=== PATIENT | male | born 1945 ===

== ENCOUNTER 2023-11-21 15:40 | Outpatient (CLI) | payer MEDICARE | END 2023-11-21 23:59 | disposition critical access hospital (66) | LOC: EMS 15:40 | DX: R09.89 Other specified symptoms and signs involving the circulatory and respiratory systems (principal); R53.83 Other fatigue | CPT/HCPCS: A0425; A0429 ==

== ENCOUNTER 2023-11-21 16:03 | Emergency (ER) | payer MEDICARE, OTHER ==
--- NOTE | 2023-11-21 16:13 | ED Physician Documentation ---
History of Present Illness - Stated complaint Stated Complaint: DIFFICULTY BREATHING - History obtained from History obtained from: Patient, EMS - Additonal information Additional information: 78-year-old with history of dementia presents from a memory care facility. History is very limited from the patient due to his dementia but it sounds like they were concerned that he choked this morning and perhaps has an obstruction of his airway or esophagus. PD PAST MEDICAL HISTORY - Present Medications Home Medications: Ambulatory Orders Medication Instructions Recorded Confirmed Acetaminophen 325 mg PO Q6HR 11/21/23 Losartan [Cozaar] 25 mg PO DAILY 11/21/23 11/21/23 - Allergies Allergies/Adverse Reactions: Allergies Allergy/AdvReac Type Severity Reaction Status Date / Time Penicillins AdvReac Unknown Verified 11/21/23 18:35 Sulfa (Sulfonamide AdvReac Unknown Verified 11/21/23 18:35 Antibiotics) PD ED PE NORMAL - Vitals Vital signs reviewed: Yes - General General: Other (He is awake alert and talking to me but unable to participate in history due to dementia/confusion.) - HEENT HEENT: PERRL, EOMI, Pharynx benign - Cardiac Cardiac: RRR, No murmur - Respiratory Respiratory: No respiratory distress, Clear bilaterally - Abdomen Abdomen: Non tender - Neuro Eye Opening: Spontaneous Motor: Obeys Commands Verbal: Confused GCS Score: 14 Results - Vitals Vitals: Vital Signs - 24 hr 11/21/23 11/21/23 11/21/23 16:08 16:15 16:24 Temperature 36.3 C L Heart Rate 72 74 74 Respiratory 19 17 17 Rate Blood Pressure 140/126 H O2 Saturation 97 96 97 11/21/23 11/21/23 16:42 18:30 Temperature 37.7 C Heart Rate 79 92 Respiratory 18 16 Rate Blood Pressure 154/75 H O2 Saturation 97 93 Oxygen O2 Source Room air - Labs Labs: Laboratory Tests 11/21/23 11/21/23 17:07 17:07 WBC 4.3 L RBC 4.18 L Hgb 11.7 L Hct 37.8 L MCV 90.4 MCH 28.0 MCHC 31.0 L RDW 13.3 Plt Count 111 L MPV 9.9 Neut # (Auto) 3.0 Lymph # (Auto) 0.8 L [place] # (Auto) 0.4 Eos # (Auto) 0.0 Baso # (Auto) 0.0 Absolute Nucleated RBC 0.00 Nucleated RBC % 0.0 Sodium 137 Potassium 4.1 Chloride 103 Carbon Dioxide 27 Anion Gap 7.0 BUN 31 H Creatinine 1.5 H Estimated GFR (MDRD) 45 L Glucose 98 Calcium 9.5 Magnesium 1.8 Total Bilirubin 0.6 AST 20 ALT 17 Alkaline Phosphatase 74 Total Protein 6.4 Albumin 3.8 Globulin 2.6 Albumin/Globulin Ratio 1.5 - Rads (name of study) Chest x-ray demonstrating cardiomegaly without infiltrate. Relevant Findings:: Final report received, EMP independent interpretation of test CT Head-NAD Relevant Findings:: Final report received, EMP independent interpretation of test PD Medical Decision Making - ED course Complexity details: reviewed results (CBC- mild anemia, unclear acuity, CMP, low renal function, unclear acuity) ED course: This is an 78-year-old gentleman with fairly severe dementia presents with concern for choking episode today. Minimal history is available from the patient but he appears well and was able to swallow liquids without issue at the bedside. This rules out esophageal obstruction of course. And chest x-ray looks grossly clear. I did call his sister, his POA who is on the [facility] and had a lengthy discussion with her about goals of care. She had filled out his POLST form with comfort measures only, and admits she would not want any "heroic" measures but would like basic things checked. Her understanding from the nurse at the [facility] care facility was that he has been looking ill for 2 days with an ashen color, decreased bowel movements and oral intake and trouble swallowing. We discussed goals of care including what if any workup should be done. She initially wanted me to check "everything." I discussed with her that usually the purpose of medical testing is to delineate a diagnosis and treatment plan. I gave her several examples of what diagnoses and treatments we could workup, for example I asked her if he was having a heart attack, would she want us to transfer him to a cardiology facility for angiography and the answer was "no." Then discussed with her if he was having worsening of chronic kidney disease and kidney failure, which she want him to have dialysis and again the answer was in the negative. That said she still wanted "the basics" checked and we performed a CBC which was notable for some anemia of unclear chronicity and lymphopenia which is nonspecific. A CMP showing moderate depressed renal function, again of unclear acuity. That said there is no emergency medical condition identified on this testing and I updated the sister by phone who was appreciative. Departure - Departure Disposition: 01 Home, Self Care Clinical Impression: Renal insufficiency, Choking episode, Dementia Anemia Qualifiers: Anemia type: unspecified type Qualified Code(s): D64.9 - Anemia, unspecified Condition: Good Record reviewed to determine appropriate education?: Yes Comments: His chest x-ray is clear. He was able to tolerate liquids so no esophageal obstruction. His sister was involved and we did a CAT scan of his head, CBC and CMP with relevant findings of a normal head CT, mild anemia on CBC and depressed renal function of unclear acuity on CMP. Forms: PCP List Discharge Date/Time: 11/21/23 18:51
[2023-11-21 17:13] LABS: BASOPHILS % (AUTO) 0.2 %; EOSINOPHILS % (AUTO) 0.7 %; HCT - HEMATOCRIT 37.8 % (42.0-52.0); HGB - HEMOGLOBIN 11.7 g/dL (14.0-18.0); LYMPHOCYTES # (AUTO) 0.8 10^3/uL (1.5-3.5); LYMPHOCYTES % (AUTO) 19.1 %; MEAN CORPUSCULAR VOLUME 90.4 fL (80.0-94.0); MEAN PLATELET VOLUME 9.9 fL (7.4-11.4); MONOCYTES # (AUTO) 0.4 10^3/uL (0.0-1.0); MONOCYTES % (AUTO) 10.1 %; NEUTROPHILS % (AUTO) 69.7 %; PLT - PLATELET COUNT 111 10^3/uL (130-450); RED BLOOD COUNT 4.18 10^6/uL (4.70-6.10); RED CELL DISTRIBUTION WIDTH 13.3 % (12.0-15.0); WHITE BLOOD COUNT 4.3 x10^3/uL (4.8-10.8)
--- NOTE | 2023-11-21 17:16 | XRAY Report ---
PROCEDURE: Chest 1V INDICATIONS: possible aspiration TECHNIQUE: One view of the chest was acquired. COMPARISON: None. FINDINGS: Surgical changes and devices: None. Lungs and pleura: No pleural effusions or pneumothorax. Lungs are clear. Mediastinum: Mediastinal contours appear normal. Cardiomegaly. Bones and chest wall: No suspicious bony lesions. Overlying soft tissues appear unremarkable. IMPRESSION: Cardiomegaly. No focal infiltrates. Reviewed by: Cedric Park MD on 11/21/2023 5:15 PM PDT Approved by: Cedric Park MD on 11/21/2023 5:15 PM PDT Station ID: [id number]
[2023-11-21 17:29] LABS: MAGNESIUM 1.8 mg/dL (1.7-2.3)
[2023-11-21 17:35] LABS: ALBUMIN 3.8 g/dL (3.2-5.5); ALBUMIN/GLOBULIN RATIO 1.5 (1.0-2.2); BILIRUBIN,TOTAL 0.6 mg/dL (0.2-1.0); CALCIUM 9.5 mg/dL (8.5-10.3); CREATININE 1.5 mg/dL (0.6-1.3); POTASSIUM 4.1 mmol/L (3.5-4.5); TOTAL PROTEIN 6.4 g/dL (6.4-8.9)
--- NOTE | 2023-11-21 17:38 | CT Report ---
PROCEDURE: Head WO INDICATIONS: dysphagia TECHNIQUE: Noncontrast 4.5 mm thick angled axial sections acquired from the foramen magnum to the vertex. For r adiation dose reduction, the following was used: automated exposure control, adjustment of mA and/or kV according to patient size. COMPARISON: None. FINDINGS: Image quality: Suboptimal due to motion artifact. CSF spaces: Basal cisterns are patent. No extra-axial fluid collections. Ventricles are normal in size and shape. Brain: No midline shift. No intracranial masses or hemorrhage. [place]-white matter interface is norm al. Skull and face: Calvarium and visualized facial bones are intact, without suspicious lesions. Sinuses: Trace posterior mucosal thickening of the left maxillary sinus. IMPRESSION: Severely suboptimal evaluation due to motion artifact. No acute intracranial pathology. Reviewed by: Bhavik Warner MD on 11/21/2023 5:37 PM PDT Approved by: Bhavik Warner MD on 11/21/2023 5:37 PM PDT Station ID: [id number]
[2023-11-21 18:43] VITALS: BP 154/75; O2SAT 93
== END 2023-11-21 18:51 | disposition home or self-care (01) ==
LOC: ED 16:03
DX: R09.89 Other specified symptoms and signs involving the circulatory and respiratory systems (principal); F03.90 Unspecified dementia, unspecified severity, without behavioral disturbance, psychotic disturbance, mood disturbance, and anxiety; N28.9 Disorder of kidney and ureter, unspecified; D64.9 Anemia, unspecified; Z79.899 Other long term (current) drug therapy
CPT/HCPCS: 36415; 80053; 83735; 85025; 99283; 99284

== ENCOUNTER 2023-12-11 04:06 | Outpatient (CLI) | payer MEDICARE | END 2023-12-11 23:59 | disposition critical access hospital (66) | LOC: EMS 04:06 | DX: S01.01XA Laceration without foreign body of scalp, initial encounter (principal); W18.30XA Fall on same level, unspecified, initial encounter; Y92.099 Unspecified place in other non-institutional residence as the place of occurrence of the external cause; F03.90 Unspecified dementia, unspecified severity, without behavioral disturbance, psychotic disturbance, mood disturbance, and anxiety | CPT/HCPCS: A0425; A0429 ==

== ENCOUNTER 2023-12-11 04:10 | Emergency (ER) | payer MEDICARE ==
[2023-12-11] MEDS: TETANUS/DIPHTHERIA/PERTUSSIS 0.5 ML SYRINGE IM ONE (04:53)
--- NOTE | 2023-12-11 05:26 | ED Physician Documentation ---
PD HPI HEAD INJURY - Stated complaint Stated Complaint: GLF - Chief complaint Chief Complaint: Trauma Hd/Nk - History obtained from History obtained from: EMS - Additional information Additional information: Patient is an 78-year-old male [facility] with [facility] presenting for evaluation of an unwitnessed fall. Staff heard him fall and saw that he had a head injury with a laceration. Patient is not able to provide any meaningful history.He is not on any blood thinners. Review of Systems Unable to obtain: Dementia PD PAST MEDICAL HISTORY - Past Medical History Cardiovascular: Hypertension Respiratory: None Neuro: Alzhiemer's, Dementia Endocrine/Autoimmune: None GI: GERD : None HEENT: None Psych: None Musculoskeletal: None Derm: None - Present Medications Home Medications: Ambulatory Orders Medication Instructions Recorded Confirmed Losartan [Cozaar] 25 mg PO DAILY 11/21/23 12/11/23 Acetaminophen [Aphen] 325 mg PO PRN PRN 12/11/23 12/11/23 Albuterol Sulfate [Proair 90 mcg IH PRN PRN 12/11/23 12/11/23 Digihaler] Cetirizine HCl [All Day Allergy 10 mg PO DAILY 12/11/23 12/11/23 Relief] Loperamide [Imodium] 2 mg PO ONCE 12/11/23 12/11/23 Magnesium Hydroxide [Milk of 400 mg PO PRN PRN 12/11/23 12/11/23 Magnesia] predniSONE [Deltasone] 20 mg PO DAILY 12/11/23 12/11/23 - Allergies Allergies/Adverse Reactions: Allergies Allergy/AdvReac Type Severity Reaction Status Date / Time Penicillins AdvReac Unknown Verified 12/11/23 04:20 Sulfa (Sulfonamide AdvReac Unknown Verified 12/11/23 04:20 Antibiotics) - Social History Does the pt smoke?: No Smoking Status: Never smoker Does the pt drink ETOH?: No Does the pt have substance abuse?: No - Immunizations Immunizations are current?: Yes - POLST Patient has POLST: No PD ED PE NORMAL - General General: No acute distress, Well developed/nourished. No: Alert and oriented X 3 (Alert and oriented to person and place) - HEENT HEENT: Other (Posterior scalp hematoma and laceration) - Neck Neck: Supple, no meningeal sign, No bony TTP - Cardiac Cardiac: RRR - Respiratory Respiratory: No respiratory distress, Clear bilaterally - Abdomen Abdomen: Soft, Non tender, Non distended - Derm Derm: Warm and dry - Extremities Extremities: No deformity, Normal ROM s pain - Neuro Neuro: No motor deficit, Normal speech. No: Alert and oriented X 3 (Alert and oriented to person and place) Eye Opening: Spontaneous Motor: Obeys Commands Verbal: Confused GCS Score: 14 Results - Vitals Vitals: Vital Signs - 24 hr 12/11/23 04:14 Temperature 36.4 C L Heart Rate 64 Respiratory 14 Rate Blood Pressure 176/82 H O2 Saturation 100 Oxygen O2 Source Room air - Labs Labs: Laboratory Tests 12/11/23 12/11/23 06:04 06:04 WBC 8.3 RBC 3.86 L Hgb 11.0 L Hct 34.9 L MCV 90.4 MCH 28.5 MCHC 31.5 L RDW 13.3 Plt Count 201 MPV 9.3 Neut # (Auto) 6.6 Lymph # (Auto) 0.9 L Jay # (Auto) 0.6 Eos # (Auto) 0.1 Baso # (Auto) 0.0 Absolute Nucleated RBC 0.00 Nucleated RBC % 0.0 Sodium 139 Potassium 4.3 Chloride 105 Carbon Dioxide 28 Anion Gap 6.0 BUN 22 H Creatinine 1.4 H Estimated GFR (MDRD) 49 L Glucose 88 Calcium 10.1 Total Bilirubin 0.5 AST 11 ALT 11 Alkaline Phosphatase 70 Total Protein 6.8 Albumin 3.6 Globulin 3.2 Albumin/Globulin Ratio 1.1 Procedures - Laceration (location) Scalp - posterior Length in cm: 2.5 Wound type: Linear Wound preparation: Hibiclens, Irrigated copiously NS Skin layer closure: [place] (3) Other: Patient tolerated well, No complications, Neurovascular intact, Tetanus booster given PD Medical Decision Making - ED course Complexity details: reviewed results, d/w patient ED course: Patient is an 78-year-old male from a memory care facility with an unwitnessed fall and head injury. Not on blood thinners. Appears to be at his neurobaseline. CT head and cervical spine were obtained and reviewed. Patient has an area of subdural hemorrhage as well as subarachnoid hemorrhage from trauma. No findings of C-spine fractures. Discussed with neurosurgery at [facility] and will plan for repeat CT in 4 hours. Patient to be signed out to Dr. Arana at shift change. Screening labs with CBC, chemistry, INR were obtained. INR is pending at shift change. 0722 - D/W Dr. Ruiz (Neurosurgery, [facility]) - Recommends repeating the CT scan in 4 hours and reaching back out if there are any significant changes. If there is no significant change then patient can be discharged home with outpatient follow-up. Departure - Departure Clinical Impression: Head injury, Scalp laceration, Subdural hematoma, Subarachnoid hemorrhage Forms: PCP List
[2023-12-11 06:13] LABS: BASOPHILS % (AUTO) 0.5 %; EOSINOPHILS # (AUTO) 0.1 10^3/uL (0.0-0.7); EOSINOPHILS % (AUTO) 0.6 %; HCT - HEMATOCRIT 34.9 % (42.0-52.0); LYMPHOCYTES # (AUTO) 0.9 10^3/uL (1.5-3.5); LYMPHOCYTES % (AUTO) 10.9 %; MEAN CORPUSCULAR HEMOGLOBIN 28.5 pg (27.0-31.0); MEAN CORPUSCULAR HGB CONC 31.5 g/dL (32.0-36.0); MEAN CORPUSCULAR VOLUME 90.4 fL (80.0-94.0); MEAN PLATELET VOLUME 9.3 fL (7.4-11.4); MONOCYTES # (AUTO) 0.6 10^3/uL (0.0-1.0); MONOCYTES % (AUTO) 7.1 %; NEUTROPHILS # (AUTO) 6.6 10^3/uL (1.5-6.6); NEUTROPHILS % (AUTO) 79.3 %; PLT - PLATELET COUNT 201 10^3/uL (130-450); RED BLOOD COUNT 3.86 10^6/uL (4.70-6.10); RED CELL DISTRIBUTION WIDTH 13.3 % (12.0-15.0); WHITE BLOOD COUNT 8.3 x10^3/uL (4.8-10.8)
[2023-12-11 06:42] LABS: ALBUMIN 3.6 g/dL (3.2-5.5); ALBUMIN/GLOBULIN RATIO 1.1 (1.0-2.2); BILIRUBIN,TOTAL 0.5 mg/dL (0.2-1.0); CALCIUM 10.1 mg/dL (8.5-10.3); CREATININE 1.4 mg/dL (0.6-1.3); POTASSIUM 4.3 mmol/L (3.5-4.5); TOTAL PROTEIN 6.8 g/dL (6.4-8.9)
[2023-12-11] MEDS: ACETAMINOPHEN 325 MG TABLET PO STA (07:23)
--- NOTE | 2023-12-11 07:27 | CT Report ---
PROCEDURE: Cervical Spine WO INDICATIONS: fall/dementia/head injury TECHNIQUE: Noncontrast 3 mm thick sections acquired from the skull base to the T4 level. Sagittal and coronal r eformats were then constructed. For radiation dose reduction, the following was used: automated exp osure control, adjustment of mA and/or kV according to patient size. COMPARISON: None. FINDINGS: Image quality: Excellent. Bones: No fractures or dislocations. Severe cervical spondylosis. Chronic anterior vertebral body he ight loss of C4 and C5 and chronic diffuse vertebral body height loss of C6. Reversal of normal lordo tic curve. Advanced multilevel degenerative disc space loss. Multilevel osteophytic narrowing of the facet joints secondary to uncovertebral joint hypertrophy. There are sclerotic foci present in the th oracic spine, but uncertain etiology. Consider bone islands as a possibility. Visualized superior rib s are intact. Soft tissues: Prevertebral soft tissues are normal in thickness. No paravertebral hematomas. No ap ical pneumothoraces. IMPRESSION: 1. Severe cervical spondylosis. 2. No acute cervical fracture or dislocation noted. 3. Sclerotic bony foci in the upper thoracic spine are uncertain etiology. Findings are concordant with preliminary interpretation provided by [facility]. Reviewed by: Cedric Park MD on 12/11/2023 7:26 AM PDT Approved by: Cedric Park MD on 12/11/2023 7:26 AM PDT Station ID: [id number]
[2023-12-11 07:28] LABS: PT - PROTHROMBIN TIME 11.6 secs (9.9-12.6)
--- NOTE | 2023-12-11 07:39 | CT Report ---
PROCEDURE: Head WO INDICATIONS: fall/dementia/head injury TECHNIQUE: Noncontrast 4.5 mm thick angled axial sections acquired from the foramen magnum to the vertex. For r adiation dose reduction, the following was used: automated exposure control, adjustment of mA and/or kV according to patient size. COMPARISON: 11/21/2023. FINDINGS: Image quality: Excellent. CSF spaces: Basal cisterns are patent. There is a very thin subdural hematoma along the posterior fa lx and the anterior aspect of the left tentorium cerebella. There is no associated mass effect. There is a tiny amount of subarachnoid hemorrhage in the para midline aspect of the right frontal lobe. No intraparenchymal hemorrhage. Ventricles are normal in size and shape. Brain: No midline shift. As stated above, thin subdural hematoma and trace subarachnoid hemorrhage. There is a mass present involving the sella and suprasellar region with erosion and widening of the s dee dee. This was not identifiable on the previous study, in which there was patient motion is region. G ray-white matter interface is normal. Skull and face: Calvarium and visualized facial bones are intact, without suspicious lesions. Sinuses: Air-fluid level in right sphenoid sinus and small air-fluid level in left frontal sinus. IMPRESSION: 1. Small subdural hematoma along the posterior falx and left tentorium without mass effect. 2. Tiny amount of subarachnoid hemorrhage. 3. 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 4. Sinusitis. Preliminary interpretation provided by [facility]. Sella/suprasellar lesion discussed with Alondra Arnaa MD at the time of dictation on 12/11/2023 0734 h ours. Comment: Potential further workup of the solid lesion would involve MRI with and without contrast. Reviewed by: Cedric Park MD on 12/11/2023 7:37 AM PDT Approved by: Cedric Park MD on 12/11/2023 7:37 AM PDT Station ID: [id number]
--- NOTE | 2023-12-11 09:33 | CT Report ---
PROCEDURE: Head WO INDICATIONS: SDH/SAH; trauma; fall TECHNIQUE: Noncontrast 4.5 mm thick angled axial sections acquired from the foramen magnum to the vertex. For r adiation dose reduction, the following was used: automated exposure control, adjustment of mA and/or kV according to patient size. COMPARISON: 12/11/2023 at 0443 hours. FINDINGS: Image quality: Excellent. CSF spaces: Basal cisterns are patent. No significant change, very small posterior falx subdural hem atoma as well as left subdural layering along the tentorium. No interval subarachnoid hemorrhage. Sma ll amount of blood in the subarachnoid space. Ventricles are normal in size and shape. Brain: No midline shift. [place]-white matter interface is normal. Skull and face: There is a destructive lesion involving the clivus with enlargement of the sella wit h mass present involving the sella. Calvarium and visualized facial bones are otherwise intact, witho ut suspicious lesions. Sinuses: Visualized sinuses and mastoids are clear. IMPRESSION: 1. Stable thin subdural hematomas without mass effect. Unchanged minimal subarachnoid hemorrhage. 2. 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 Above discussed with Alondra Arana MD at the time of dictation. Reviewed by: Cedric Prak MD on 12/11/2023 9:32 AM PDT Approved by: Cedric Park MD on 12/11/2023 9:32 AM PDT Station ID: [id number]
[2023-12-11 10:12] VITALS: BP 161/100; O2SAT 100
--- NOTE | 2023-12-13 09:05 | ED Physician Documentation ---
ED Addendum - Addendum Addendum: 12/13/23 08:58 The pt was signed out to me at change of shift, pending repeat head CT after presenting for a GLF/CHI and being found to have a couple of small bleeds. My overnight colleague had discussed the case with neurosurgery at /, and he had recommended repeat 4-hour CT, with plan for d/c if negative and pt stable. The repeat CT was done, and showed stability of the bleed, but radiologist did note a likely tumor. Follow-up MRI, on an urgent, but not emergent, basis was recommended. Given the acuity and volume of the ED, I did feel that the pt would need to be discharged with recommendation to follow-up for this as an outpatient. I have recommended to the SNF where the pt lives that the family be involved, as the pt has dementia and is not full code, so that they can decide how much they want to put the pt through for treatment, vs comfort care. Final impression: 1. Traumatic intracranial hemorrhage 2. Brain tumor Disposition: D/c home in stable condition
== END 2023-12-11 11:23 | disposition home or self-care (01) ==
LOC: EDUNIT# → ED 04:10
DX: S01.01XA Laceration without foreign body of scalp, initial encounter (principal); S06.5XAA Traumatic subdural hemorrhage with loss of consciousness status unknown, initial encounter; S06.6XAA Traumatic subarachnoid hemorrhage with loss of consciousness status unknown, initial encounter; W19.XXXA Unspecified fall, initial encounter; Y92.129 Unspecified place in nursing home as the place of occurrence of the external cause; D49.6 Neoplasm of unspecified behavior of brain; I10 Essential (primary) hypertension; G30.9 Alzheimer's disease, unspecified; F02.80 Dementia in other diseases classified elsewhere, unspecified severity, without behavioral disturbance, psychotic disturbance, mood disturbance, and anxiety; Z23 Encounter for immunization; Z79.899 Other long term (current) drug therapy
CPT/HCPCS: 12001; 36415; 70450; 72125; 80053; 85025; 85610; 90471; 90715; 99284; A9270

== ENCOUNTER 2023-12-11 11:20 | Outpatient (CLI) | payer MEDICARE | END 2023-12-11 23:59 | disposition home or self-care (01) | LOC: EMS 11:20 | PROVIDERS: ATTEND Emergency Medicine | DX: R41.0 Disorientation, unspecified (principal); S01.01XA Laceration without foreign body of scalp, initial encounter; W19.XXXA Unspecified fall, initial encounter; G30.9 Alzheimer's disease, unspecified; F02.80 Dementia in other diseases classified elsewhere, unspecified severity, without behavioral disturbance, psychotic disturbance, mood disturbance, and anxiety | CPT/HCPCS: A0425; A0428 ==

== ENCOUNTER 2023-12-20 20:36 | Outpatient (CLI) | payer MEDICARE | END 2023-12-20 23:59 | disposition critical access hospital (66) | LOC: EMS 20:36 | PROVIDERS: ATTEND Emergency Medicine | DX: M54.2 Cervicalgia (principal); W19.XXXA Unspecified fall, initial encounter; Y92.099 Unspecified place in other non-institutional residence as the place of occurrence of the external cause | CPT/HCPCS: A0425; A0429 ==

== ENCOUNTER 2023-12-20 20:57 | Emergency (ER) | payer MEDICARE ==
[2023-12-20] MEDS: LIDOCAINE 2%-EPI 1:100000 20 ML MDV SUBQ STA (21:17)
--- NOTE | 2023-12-20 21:44 | CT Report ---
PROCEDURE: Head WO INDICATIONS: head injury TECHNIQUE: Noncontrast 4.5 mm thick angled axial sections acquired from the foramen magnum to the vertex. For r adiation dose reduction, the following was used: automated exposure control, adjustment of mA and/or kV according to patient size. COMPARISON: 12/11/2023 FINDINGS: Image quality: Diagnostic. CSF spaces: Basal cisterns are patent. No extra-axial fluid collections. Ventricles are stable in size and shape. Brain: No midline shift. Previously described small subdural hematoma layering across the posterior falx and left tentorium have essentially resolved. No new acute intracranial hemorrhage. No mass eff ect. [place]-white matter interface is normal. There cerebral volume loss for age with resultant ventric ular and sulcal prominence. There are periventricular and deep white matter chronic small vessel isch emic changes. Atherosclerotic calcifications are noted in the intracranial segments of the bilateral internal carotid arteries. Skull and face: Stable appearance of suprasellar/sellar mass with erosive changes of the sella turcic a. Remainder of the calvarium and visualized facial bones are intact, without suspicious lesions. Sinuses: Mucosal thickening of the bilateral maxillary and frontal sinuses. Other paranasal sinuses a nd mastoids are clear. IMPRESSION: Previously described small subdural hematoma along the posterior falx and left cerebellar tentorium h ave essentially resolved. No new acute intracranial hemorrhage identified. Stable age-related senescent changes and sequela chronic small vessel ischemic disease. Stable appearance of sellar/suprasellar mass with erosive changes of the sella turcica. Bilateral maxillary and frontal sinus disease. Reviewed by: Mark Harris MD on 12/20/2023 9:43 PM PDT Approved by: Mark Harris MD on 12/20/2023 9:43 PM PDT Station ID: [id number]
--- NOTE | 2023-12-20 21:48 | CT Report ---
PROCEDURE: Cervical Spine WO INDICATIONS: head injury TECHNIQUE: Noncontrast 3 mm thick sections acquired from the skull base to the T4 level. Sagittal and coronal r eformats were then constructed. For radiation dose reduction, the following was used: automated exp osure control, adjustment of mA and/or kV according to patient size. COMPARISON: 12/11/2023 FINDINGS: Image quality: Diagnostic. Bones: No acute fractures or dislocations. No acute compression fractures of the vertebral bodies. Craniocervical junction is intact. C1-C2 relationship is preserved. Visualized superior ribs are inta ct. Stable appearance of severe multilevel cervical spondylosis most pronounced from C3-4 through C7-T1. Stable alignment with straightening of cervical lordosis and kyphosis centered at the level of C4-5. These are likely degenerative in etiology. Soft tissues: Prevertebral soft tissues are normal in thickness. No paravertebral hematomas. No ap ical pneumothoraces. IMPRESSION: CT cervical spine without acute fracture or traumatic malalignment. Stable cervical spinal alignment and severe multilevel cervical spondylitic changes. Reviewed by: Mark Harris MD on 12/20/2023 9:47 PM PDT Approved by: Mark Harris MD on 12/20/2023 9:47 PM PDT Station ID: [id number]
--- NOTE | 2023-12-20 22:08 | ED Physician Documentation ---
History of Present Illness - Stated complaint Stated Complaint: GLF - Chief complaint Chief Complaint: Trauma Hd/Nk - History obtained from History obtained from: Patient - Additonal information Additional information: 78-year-old man not on anticoagulation or blood thinners presents after being found on the ground at home Place where he resides for dementia care. He does have a laceration to the left occiput. Unable to give consistent history. PD PAST MEDICAL HISTORY - Past Medical History Cardiovascular: Hypertension Respiratory: None Neuro: Alzhiemer's, Dementia Endocrine/Autoimmune: None GI: GERD : None HEENT: None Psych: None Musculoskeletal: None Derm: None - Present Medications Home Medications: Ambulatory Orders Medication Instructions Recorded Confirmed Losartan [Cozaar] 25 mg PO DAILY 11/21/23 12/11/23 Acetaminophen [Aphen] 325 mg PO PRN PRN 12/11/23 12/11/23 Albuterol Sulfate [Proair 90 mcg IH PRN PRN 12/11/23 12/11/23 Digihaler] Cetirizine HCl [All Day Allergy 10 mg PO DAILY 12/11/23 12/11/23 Relief] Loperamide [Imodium] 2 mg PO ONCE 12/11/23 12/11/23 Magnesium Hydroxide [Milk of 400 mg PO PRN PRN 12/11/23 12/11/23 Magnesia] predniSONE [Deltasone] 20 mg PO DAILY 12/11/23 12/11/23 - Allergies Allergies/Adverse Reactions: Allergies Allergy/AdvReac Type Severity Reaction Status Date / Time Penicillins AdvReac Unknown Verified 12/20/23 23:15 Sulfa (Sulfonamide AdvReac Unknown Verified 12/20/23 23:15 Antibiotics) - Social History Does the pt smoke?: No Smoking Status: Never smoker Does the pt drink ETOH?: No Does the pt have substance abuse?: No - Immunizations Immunizations are current?: Yes - POLST Patient has POLST: No PD ED PE NORMAL - Vitals Vital signs reviewed: Yes - General General: No acute distress, Well developed/nourished, Other (Alert, mentating at baseline. Poor historian) - HEENT HEENT: Atraumatic, PERRL, EOMI, Moist mucous membranes, Pharynx benign - Neck Neck: No bony TTP, Other (Soft collar in place. Patient cannot Tolerate c- collar.) - Cardiac Cardiac: RRR - Respiratory Respiratory: No respiratory distress, Clear bilaterally - Abdomen Abdomen: Non tender, Non distended - Back Back: No spinal TTP - Derm Derm: Normal color, Warm and dry - Neuro Neuro: No motor deficit, No sensory deficit Eye Opening: Spontaneous Motor: Obeys Commands Verbal: Confused GCS Score: 14 - Psych Psych: Normal mood, Normal affect Results - Vitals Vitals: Vital Signs - 24 hr 12/20/23 12/20/23 21:02 23:18 Temperature 36.8 C Heart Rate 66 85 Respiratory 16 16 Rate Blood Pressure 184/82 H 164/85 H O2 Saturation 97 99 Oxygen O2 Source Room air Procedures - Laceration (location) Scalp left Posterior Length in cm: 2 Wound type: Linear Neurovascular status: Sensory intact, Motor intact, Vascular intact Tendon involvement: Tendon intact Anesthesia: Lidocaine 2% with epi Wound preparation: Irrigated copiously NS Skin layer closure: Pedro (5) Other: Patient tolerated well, No complications, Tetanus UTD PD Medical Decision Making - ED course ED course: 78-year-old male with history of dementia presents after unwitnessed fall at his snf. His CT head and C-spine were normal and he has benign exam. Laceration to scalp repaired with 5 pedro. Plan to have this removed in 10 days. Return precautions given. Departure - Departure Disposition: 01 Home, Self Care Clinical Impression: Fall, Laceration of scalp Condition: Stable Instructions: ED Laceration Scalp Stitch Or Stap Comments: You were seen in the emergency department for cut on the scalp. Your head and neck CT looked okay. You need the pedro taken out in 10 days. Please follow-up with your primary care provider and return to the emergency department if you have any new or worsening symptoms or other concerns. Forms: PCP List Discharge Date/Time: 12/20/23 23:18
[2023-12-20 23:27] VITALS: BP 164/85; O2SAT 99
== END 2023-12-20 23:18 | disposition home or self-care (01) ==
LOC: EDUNIT# → ED 20:57
DX: S01.01XA Laceration without foreign body of scalp, initial encounter (principal); W19.XXXA Unspecified fall, initial encounter; Y92.129 Unspecified place in nursing home as the place of occurrence of the external cause; G30.9 Alzheimer's disease, unspecified; F02.80 Dementia in other diseases classified elsewhere, unspecified severity, without behavioral disturbance, psychotic disturbance, mood disturbance, and anxiety; I10 Essential (primary) hypertension; M47.812 Spondylosis without myelopathy or radiculopathy, cervical region
CPT/HCPCS: 12001; 99284

== ENCOUNTER 2023-12-20 23:18 | Outpatient (CLI) | payer MEDICARE | END 2023-12-20 23:59 | LOC: EMS 23:18 | PROVIDERS: ATTEND Emergency Medicine | DX: R41.0 Disorientation, unspecified (principal); S01.91XA Laceration without foreign body of unspecified part of head, initial encounter; W19.XXXA Unspecified fall, initial encounter | CPT/HCPCS: A0425; A0428 ==